=== PATIENT | female | born 1955 | race Caucasian/White ===

== ENCOUNTER 2019-03-29 12:43 | Inpatient (IN) ==
[2019-03-29] MEDS ORDERED: Sennosides/Docusate Sodium TABLET PO PRN (14:29)
[2019-03-29] MEDS: Gabapentin 300 MG CAPSULE PO SCH ×2 (14:38→20:40)
[2019-03-29] MEDS: *HR* OxyCODONE Immed Rel 5 MG TABLET PO PRN ×2 (14:38→20:38)
[2019-03-29] MEDS: Aspirin Enteric Coated 81 MG Tablet PO SCH (20:40)
[2019-03-29] MEDS: tiZANidine 4 MG TABLET PO PRN (23:39)
[2019-03-30] MEDS: *HR* OxyCODONE Immed Rel 5 MG TABLET PO PRN ×4 (02:50→21:52)
[2019-03-30] MEDS: tiZANidine 4 MG TABLET PO PRN ×2 (06:01→17:52)
[2019-03-30] MEDS: *HR* Enoxaparin 40 MG/0.4 ML SYRINGE SQ SCH (06:02)
[2019-03-30 07:17] LABS: Basophils % 0.6 %; Eosinophils # 0.1 K/mcL (0.0-0.6); Hematocrit 34.8 % (35.3-44.9); Hemoglobin 11.7 g/dL (11.5-15.4); Immature Granulocytes % 0.4 % (0-4); Lymphocytes # 2.7 K/mcL (0.6-4.6); Lymphocytes % 38.4 %; Mean Corpuscular HGB Conc 33.6 g/dL (31.6-35.5); Mean Corpuscular Hemoglobin 31.8 pg (28.0-33.3); Mean Corpuscular Volume 94.6 fL (83.0-100.0); Mean Platelet Volume 8.9 fL (9.4-12.4); Monocytes # 0.7 K/mcL (0.0-1.3); Monocytes % 9.6 %; Neutrophils # 3.4 K/mcL (1.6-8.9); Platelet Count 242 K/mcL (140-400); Red Blood Count 3.68 M/mcL (3.82-4.97); White Blood Count 6.9 K/mcL (4.3-11.1)
[2019-03-30 07:31] LABS: BUN/Creatinine Ratio 14 (6-26); Blood Urea Nitrogen 10 mg/dL (8-23); Calcium 8.5 mg/dL (8.6-10.3); Carbon Dioxide 30 mEq/L (23-29); Chloride 103 mEq/L (98-107); Glucose 109 mg/dL (70-105); Osmolality,Calculated 284 (280-300); Potassium 3.6 mEq/L (3.5-5.1); Sodium 137 mEq/L (136-145); eGFR For African Americans > 60 (> 60); eGFR For Non-African Americans > 60 (> 60)
[2019-03-30] MEDS: Aspirin Enteric Coated 81 MG Tablet PO SCH ×2 (08:38→21:54)
[2019-03-30] MEDS: Gabapentin 300 MG CAPSULE PO SCH ×3 (08:39→21:52)
[2019-03-30] MEDS: Multivit/Ca/Min/Fe/FA 1 TAB TABLET PO SCH (08:39)
[2019-03-30] MEDS: Cholecalciferol (D-3) 1,000 UNIT (25MCG) TABLET PO SCH (08:40)
[2019-03-30] MEDS ORDERED: Methyl Salicylate/Menthol 28 GM TUBE TP PRN (15:17)
[2019-03-30] MEDS: Ondansetron ODT 4 MG TAB.RAPDIS PO PRN (16:26)
[2019-03-31] MEDS: tiZANidine 4 MG TABLET PO PRN ×2 (03:32→21:23)
[2019-03-31] MEDS: *HR* Enoxaparin 40 MG/0.4 ML SYRINGE SQ SCH (04:37)
[2019-03-31] MEDS: *HR* OxyCODONE Immed Rel 5 MG TABLET PO PRN ×3 (04:37→16:42)
[2019-03-31] MEDS: Cholecalciferol (D-3) 1,000 UNIT (25MCG) TABLET PO SCH (07:53)
[2019-03-31] MEDS: Aspirin Enteric Coated 81 MG Tablet PO SCH ×2 (07:53→21:23)
[2019-03-31] MEDS: Gabapentin 300 MG CAPSULE PO SCH ×3 (07:53→21:23)
[2019-03-31] MEDS: Multivit/Ca/Min/Fe/FA 1 TAB TABLET PO SCH (07:53)
[2019-03-31] MEDS: Methyl Salicylate/Menthol 57 APPL/57 GM TUBE TP PRN (17:30)
[2019-04-01] MEDS: *HR* OxyCODONE Immed Rel 5 MG TABLET PO PRN ×3 (01:17→14:02)
[2019-04-01] MEDS: *HR* Enoxaparin 40 MG/0.4 ML SYRINGE SQ SCH (05:45)
[2019-04-01] MEDS: Aspirin Enteric Coated 81 MG Tablet PO SCH ×2 (08:57→19:46)
[2019-04-01] MEDS: Gabapentin 300 MG CAPSULE PO SCH ×3 (08:57→19:46)
[2019-04-01] MEDS: Multivit/Ca/Min/Fe/FA 1 TAB TABLET PO SCH (08:57)
[2019-04-01] MEDS: Cholecalciferol (D-3) 1,000 UNIT (25MCG) TABLET PO SCH (08:57)
[2019-04-01] MEDS: Methyl Salicylate/Menthol 57 APPL/57 GM TUBE TP PRN (09:05)
[2019-04-01] MEDS: Ondansetron ODT 4 MG TAB.RAPDIS PO PRN (10:58)
[2019-04-01] MEDS: tiZANidine 4 MG TABLET PO PRN (19:46)
[2019-04-02] MEDS: *HR* OxyCODONE Immed Rel 5 MG TABLET PO PRN ×3 (00:16→12:24)
[2019-04-02] MEDS: *HR* Enoxaparin 40 MG/0.4 ML SYRINGE SQ SCH (05:44)
[2019-04-02] MEDS: tiZANidine 4 MG TABLET PO PRN ×2 (05:44→16:17)
[2019-04-02] MEDS: Gabapentin 300 MG CAPSULE PO SCH ×2 (07:45→16:17)
[2019-04-02] MEDS: Multivit/Ca/Min/Fe/FA 1 TAB TABLET PO SCH (07:45)
[2019-04-02] MEDS: Cholecalciferol (D-3) 1,000 UNIT (25MCG) TABLET PO SCH (07:45)
[2019-04-02 08:33] VITALS: BP 103/57
[2019-04-02] MEDS: Aspirin Enteric Coated 81 MG Tablet PO SCH (09:29)
[2019-04-02] MEDS: Ondansetron ODT 4 MG TAB.RAPDIS PO PRN (14:30)
== END 2019-04-02 16:42 | disposition home health service (06) | DRG 561 ==
LOC: INPGRE 12:43
PROVIDERS: ADMIT Family Medicine; ATTEND Family Medicine